=== PATIENT | male | born 1945 | race Caucasian/White ===

== ENCOUNTER → 2024-09-19 09:16 | Outpatient (CLI) | payer MEDICARE, SELFPAY ==
--- NOTE | 2024-09-19 09:23 | DI.ECHO.S_ITS ---
[facility] : : [address] : : [place] : : [id number] : : Phone: [phone] Echocardiogram Report + + :Name: RENUKA PARRISH Study Date: 09/19/2024 Height: 71 in : :[facility] ReadingLocation: Weight: 210 lb : : Gender: Male BSA: 2.2 m2 : :: 1945 Age: 78 yrs BP: 152/77 mmHg: :Reason For Study: ATRIAL FIBRILLATION, TRICUSPID REGURGITATION : :Ordering Physician: JAMES, : :ARMANDO Performed By: Ramesh Vásquez : :Referring: ARMANDO RAMIREZ : + + Interpretation Summary The left ventricle is normal in size. Left ventricular ejection fraction is estimated to be 50 +/- 5%. There appears to be hypokinesis of apex and distal septum. This could be pacemaker induced. The right ventricle is normal in size and function. There is a pacemaker lead in the right ventricle. There is mild tricuspid regurgitation. The right ventricular systolic pressure is estimated to be at least 39 mmHg based on an estimated right atrial pressure of 8 mm Hg. Procedure: A two-dimensional transthoracic echocardiogram with color flow and Doppler was performed. The study quality was technically good. There is no prior echocardiogram noted for this patient. The patient has a paced rhythm. Left Ventricle: The left ventricle is normal in size. Left ventricular wall thickness is mildly increased. There is no ventricular septal defect visualized. A false chord is noted (normal variant). Left ventricular ejection fraction is estimated to be 50 +/- 5%. There appears to be hypokinesis of apex and distal septum. This could be pacemaker induced. Diastolic parameters suggest a relaxation abnormality of the left ventricle, consistent with probable normal filling pressures. Right Ventricle: The right ventricle is normal in size and function. There is a pacemaker lead in the right ventricle. Atria: The left atrium is mildly dilated. Right atrial size is normal. There is a catheter/pacemaker lead seen in the right atrium. There is no Doppler evidence for an interatrial shunt. Mitral Valve: There is mild mitral annular calcification. There is trace mitral regurgitation. Aortic Valve: The aortic valve is trileaflet. The aortic valve is slightly calcified. The aortic valve opens well. There is no aortic valve stenosis. No aortic regurgitation is present. Tricuspid Valve: The tricuspid valve is normal. There is mild tricuspid regurgitation. The right ventricular systolic pressure is estimated to be at least 39 mmHg based on an estimated right atrial pressure of 8 mm Hg. Pulmonic Valve: The pulmonic valve is not well seen, but is grossly normal. There is no pulmonic valvular regurgitation. Great Vessels: The aortic root is normal size. The ascending aorta is mildly enlarged. The pulmonary artery is normal size. The IVC is of normal diameter and collapses less than 50% with a sniff. This suggests a right atrial pressure of 8 mm Hg. Pericardium/ Pleura There is no pericardial effusion. There is no pleural effusion. MMode/2D Measurements & Calculations LVIDd: 5.0 cm LVOT diam: 2.4 cm LVIDs: 3.4 cm Ao root diam: 3.3 cm FS: 30.6 % asc Aorta Diam: 3.9 cm EPSS: 1.0 cm Ao Arch Diam (Prox Trans): 2.3 cm IVSd: 1.2 cm LVPWd: 1.2 cm LV tolbert. diameter/BSA (cm/m^2): 2.3 LV sys. diameter/BSA (cm/m^2): 1.6 LA A2 area: 22.7 cm2 RA long axis: 4.0 cm LA A4 area: 21.0 cm2 RA area: 9.9 cm2 LA length (vol): 5.3 cm RA vol: 20.8 ml LA vol: 76.6 ml RA : 9.7 ml/m2 LA vol index: 35.6 ml/m2 IVC diam: 1.6 cm RVD1 (basal): 3.9 cm RVD2 (mid): 3.6 cm TAPSE: 2.4 cm Doppler Measurements & Calculations Ao V2 max: 136.0 cm/sec LVOT Max King: 103.3 cm/sec Ao V2 mean: 89.2 cm/sec LV V1 max P.3 mmHg Ao max P.4 mmHg LV V1 VTI: 24.8 cm Ao mean P.7 mmHg DIANNA(I,D): 3.4 cm2 Ao V2 VTI: 32.9 cm DIANNA(V,D): 3.4 cm2 sev ratio: 0.75 DIANNA indexed to BSA (cm^2/m^2): 1.6 MV E max king: 53.9 cm/sec TR max king: 280.0 cm/sec MV A max king: 80.7 cm/sec TR max P.4 mmHg MV E/A: 0.67 PA V2 max: 69.7 cm/sec Med Peak E' King: 3.7 cm/sec PA V2 mean: 48.4 cm/sec E/E' med: 14.4 PA mean P.1 mmHg Lat Peak E' King: 5.2 cm/sec PA pr(Accel): 25.9 mmHg E/E' lat: 10.4 E/e' average: 12.4 MV dec time: 0.35 sec SV(LVOT): 111.4 ml Reading Physician:04:46 PM
--- NOTE | 2024-09-19 09:23 | DI.US.S_ITS ---
PROCEDURE: US CAROTID DOPPLER BI INDICATIONS: PAROXYSMAL AFIB,MILD TRICUSPID REGURG TECHNIQUE: Color and pulse Doppler interrogation was performed of both carotid systems, with image documentation and velocity measurements. COMPARISON: None. FINDINGS: Stenosis calculations are based on SRU (Society of Radiologists in Ultrasound) criteria. Right side: Brachial blood pressure: 145/69 mm Hg. Common carotid artery peak systolic velocity: 63 cm/sec. Internal carotid artery peak systolic velocity: 110 cm/sec. Internal carotid artery end diastolic velocity: 36 cm/sec. External carotid artery peak systolic velocity: 67 cm/sec. ICA/CCA peak systolic ratio: 1.7 . Luna scale imaging description: Atherosclerotic plaque present Percent internal carotid artery stenosis: Less than 50% . Vertebral artery: Flow direction is antegrade. Left side: Brachial blood pressure: 139/70 mm Hg. Common carotid artery peak systolic velocity: 72 cm/sec. Internal carotid artery peak systolic velocity: 75 cm/sec. Internal carotid artery end diastolic velocity: 24 cm/sec. External carotid artery peak systolic velocity: 117 cm/sec. ICA/CCA peak systolic ratio: 1 . Luna scale imaging description: Atherosclerotic plaque present. Percent internal carotid artery stenosis: Less than 50% . Vertebral artery: Flow direction is antegrade. IMPRESSION: 1. In the right carotid artery, there is less than 50% stenosis based on peak systolic velocity criteria. 2. In the left carotid artery, there is less than 50% stenosis based on peak systolic velocity criteria. 3. Antegrade vertebral arteries. Dictated by: Lloyd Stafford M.D. on 09/19/2024 at 12:10 Approved by: Lloyd Stafford M.D. on 09/19/2024 at 12:11
== END ==
PROVIDERS: Referring Provider Internal Medicine Cardiovascular Disease; Visit Provider Internal Medicine Cardiovascular Disease
DX: I48.0 Paroxysmal atrial fibrillation (principal); I08.1 Rheumatic disorders of both mitral and tricuspid valves; I65.23 Occlusion and stenosis of bilateral carotid arteries; I77.89 Other specified disorders of arteries and arterioles
CPT/HCPCS: 93306; 93880

== ENCOUNTER → 2024-11-28 09:33 | Outpatient (CLI) | payer MEDICARE, SELFPAY ==
--- NOTE | 2024-11-28 09:35 | DI.NM.S_ITS ---
PROCEDURE: NM ELIA PERF SPECT R&S PHARM Rest and pharmacological stress myocardial perfusion SPECT with gated imaging and ejection fraction RADIOPHARMACEUTICAL: 12.8 mCi Tc-99m tetrafosmin IV at rest and 25.4 mCi Tc-99m tetrafosmin IV at peak effect of pharmacological stress. [id number] was performed. INDICATIONS: PAROX AFIB/ESSENTAL HTN/AVD TECHNIQUE: Radiopharmaceutical was injected at peak stress test, and also at rest. SPECT images were obtained. SPECT myocardial perfusion images were displayed in short axis, horizontal long axis, and vertical long axis views. Gated images were reviewed using Anyvite software. COMPARISON: None. CARDIAC STRESS: A pharmacologic stress test was performed under the supervision of an attending staff, using an infusion of regadenoson 0.4 mg IV. Hemodynamic data: There is normal blood pressure and heart rate response to pharmacologic stress. Symptoms: The patient denied anginal chest pain. EKG: V paced. FINDINGS: Raw data: There is good myocardial uptake of radiotracer. No significant motion artifacts. Tecg-fd-[id number] ratio is 0.27 (normal is less than 0.38 for tetrafosmin tracer). Left ventricle function: Gated images demonstrate normal left ventricular wall thickening. No segmental wall motion abnormalities. No transient ischemic dilation; TID is 0.83 (normal less than 1.3). Left ventricle resting end diastolic volume is 124 mL. Left ventricle stress ejection fraction is >75%; normal range is above 45%. Myocardial perfusion: There is a small sized, mild intensity fixed distal septal wall defect. No reversible perfusion defects. IMPRESSION: Low risk study. No evidence of pharmacologic induced ischemia. The small size, mild intensity fixed distal septal wall defect may represent an area of scar versus pacing artifact. Slightly increased calculated LVEDV with hyperdynamic function. Oh Dictated by: Berenice Valdez D.O. on 11/28/2024 at 16:20 Approved by: Berenice Valdez D.O. on 11/28/2024 at 16:24
== END ==
PROVIDERS: PCP Family Medicine; Referring Provider Internal Medicine Cardiovascular Disease; Visit Provider Internal Medicine Cardiovascular Disease
DX: I48.0 Paroxysmal atrial fibrillation (principal); I10 Essential (primary) hypertension; I70.90 Unspecified atherosclerosis
CPT/HCPCS: 78452; 93017; A9502; J2785